=== PATIENT | female | born 2005 | race Caucasian/White ===

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

== ENCOUNTER 2024-02-24 17:31 | Emergency (ER) | payer OTHER, SELFPAY ==
[2024-02-24 17:59] VITALS: BP 112/72; PULSE 77; RESP 15; TEMP 36.9; O2SAT 100; BMI 23.3
[2024-02-24 18:58] LABS: Basophils # 0.1 10^3/uL (0.0-0.1); Basophils % 0.8 %; Eosinophils # 0.2 10^3/uL (0.0-0.8); Eosinophils % 1.9 %; Hematocrit 38.1 % (36-47); Lymphocytes # 2.1 10^3/uL (1.5-6.5); Lymphocytes % 25.5 %; Mean Corpuscular HGB Conc 34.4 g/dL (30-55); Mean Corpuscular Hemoglobin 28.5 pg (27-33); Mean Platelet Volume 11.9 fL (7.4-10.4); Monocytes # 0.6 10^3/uL (0.2-0.9); Monocytes % 7.5 %; Neutrophils # 5.32 10^3/uL (1.8-8.0); Neutrophils % 64.2 %; Nucleated Red Blood Cells % 0 %; Platelet Count 266 10^3/cmm (157-399); Red Blood Count 4.59 10^6/uL (3.85-5.65); Red Cell Distribution Width 12.2 % (12.1-15.1); White Blood Count 8.29 10^3/uL (4.5-13.0)
[2024-02-24 19:14] LABS: Alanine Aminotransferase 9 U/L (0-33); Albumin Level 4.6 g/dL (3.5-5.2); Alkaline Phosphatase 75 U/L (35-105); Aspartate Amino Transferase 16 U/L (0-32); Blood Urea Nitrogen 10 mg/dL (6-20); Calcium 9.2 mg/dL (8.5-10.5); Carbon Dioxide 24 mmol/L (22-29); Chloride 109 mmol/L (98-107); Creatinine Clr Calc Pharmacy 146.1254; Globulin 3.1 g/dL (1.3-4.6); Glomerular Filtration Rate 127.5 mL/min (90-130); Glucose 109 mg/dL (65-115); Lipase 20 U/L (13-60); Osmolality Calculated 296 mOsm/kg (285-295); Sodium 143 mmol/L (136-145); Total Bilirubin 0.6 mg/dL (0.15-1.2); Total Protein 7.7 g/dL (6.6-8.7)
[2024-02-24 19:17] LABS: HCG, Serum Qual Negative (Negative)
--- NOTE | 2024-02-24 19:19 | XRR_ITS ---
PROCEDURE INFORMATION: Exam: XR Abdomen Exam date and time: 02/24/2024 7:23 PM Age: 18 years old Clinical indication: Abdominal pain; Acute; Additional info: Upper abd pain TECHNIQUE: Imaging protocol: Radiologic exam of the abdomen. Views: Frontal supine view of the abdomen. 1 View. COMPARISON: No relevant prior studies available. FINDINGS: Gastrointestinal tract: Normal. No bowel dilation. Bones/joints: Unremarkable. XR/XR KUB portable [id number] IMPRESSION: No acute findings.
--- NOTE | 2024-02-24 19:41 | ED_ITS ---
HPI - Abdominal Pain 2 General: Chief Complaint: Abdominal Pain Stated Complaint: ABD pain, dizziness Time Seen by Provider: 02/24/24 17:46 Source: patient Mode of arrival: ambulatory Limitations: no limitations History of Present Illness: Patient is a 18-year-old female who presents to the emergency department complaining of upper abdominal pain chronically but worsening over the past month. She also notes intermittent changes in her bowel habits, stating she will fluctuate between constipation and diarrhea. Her last normal bowel movement was today. She denies any other symptoms at this time, specifically noting that she is not having any back pain, nausea or vomiting, changes in urination, or breathing difficulties. She has not taken anything for her symptoms and she does not report any specific alleviating or exacerbating factors at this time. Pain is reported to be mild and cramping. Denies possibility of . She does note a family history of irritable bowel syndrome. MD elicited complaint: abdominal pain Pertinent past history: none Onset (ago): month(s) Pain Consistency: intermittent Location: Epigastric, LUQ and RUQ Severity: mild Quality: cramping Radiation: none Migration to: no migration Exacerbating factors: nothing Relieving factors: nothing Associated Symptoms: Reports change in bowel habits, constipation and diarrhea; Denies bloating, chills, dysuria, fever(s), hematochezia, nausea and vomiting Review of Systems 2 General: Reports: 10 or more systems reviewed and unremarkable except in HPI and below Const: Denies: fever(s), chills, change in appetite, change in weight or diaphoresis ENMT: Denies: throat pain or hoarseness Card: Denies: chest pain, palpitations or lightheadedness Resp: Denies: dyspnea, productive cough or wheezing GI: Reports: abdominal pain, diarrhea, constipation and change in bowel habits; Denies: nausea, vomiting, bloating or hematochezia : Denies: flank pain, difficulty voiding, dysuria, urinary frequency or urinary urgency Musc: Denies: neck pain or back pain Skin/Breast: Denies: rash or new lesions Neuro: Denies: headache(s) or dizziness PFSH ED 2 PFSH: Medical History No pertinent past medical history Surgical History No pertinent past surgical history Family History Grandmother Diabetes Grandfather Diabetes Father Hypercholesteremia Denies family history of Colon cancer Ovarian cancer Heart disease Breast cancer Hypertension Uterine cancer Thyroid disease Stroke Physical Exam 2 Const: COMMON NORMALS: no acute distress, average body habitus, patient oriented x3, no limitations, healthy appearing, alert and well nourished G ENERAL APPEARANCE: cooperative and comfortable ORIENTATION/CONSCIOUSNESS: Yes awake HENMT: COMMON NORMALS: normocephalic, atraumatic, hearing grossly normal bilaterally, external ears normal, Normal external nose present, Normal nasal mucous membranes and turbinates present and moist oral mucous membranes HEAD & SCALP: normocephalic and atraumatic NOSE: Normal external nose present and Normal nasal mucous membranes and turbinates present EXTERNAL EAR: Yes external ears normal Eye: COMMON NORMALS: Equal, round and reactive pupils present, EOMs intact bilaterally, conjunctivae normal and normal visual diop by confrontation C ONJUNCTIVA: Yes conjunctivae normal PUPIL: Yes Equal, round and reactive pupils present Neck/C-Spine: COMMON NORMALS: full ROM, supple, no meningeal signs and no JVD Resp: COMMON NORMALS: normal respiratory effort, No retractions, No use of accessory muscles and clear to auscultation bilaterally AUSCULTATION: clear to auscultation bilaterally, no crackles, no rales, no rhonchi and no wheezes Cardio: COMMON NORMALS: no JVD, regular rate, regular rhythm, S1 normal heart sound present, S2 normal heart sound present, No gallops present (Cardio), No clicks present (Cardio), No murmurs present (Cardio), No rub (Cardio) and Peripheral pulses 2+ throughout RATE: regular rate RHYTHM: regular rhythm HEART SOUNDS: S1 normal heart sound present and S2 normal heart sound present PERIPHERAL PULSES: Peripheral pulses 2+ throughout GI: COMMON NORMALS: Normal to inspection, nondistended, normoactive bowel sounds present, Soft to palpation, non-tender, No hepatosplenomegaly present and no masses AUSCULTATION: Yes normoactive bowel sounds PALPATION: Yes Soft to palpation, No Guarding due to palpation present (GI), No Rigid due to palpation and Yes No hepatosplenomegaly present RECTAL EXAM: deferred O THER: Negative Thompson sign. Negative McBurney's point tenderness. Negative Rovsing sign. : COMMON NORMALS: Yes no CVA tenderness BLADDER/KIDNEY EXAM: Yes no CVA tenderness Back/Pelvis: COMMON NORMALS: no CVA tenderness Extremity: COMMON NORMALS: normal to inspection and full ROM Neuro: COMMON NORMALS: patient oriented x3, moves all extremities, no focal motor deficits and no sensory deficits noted SENSORIUM/ORIENTATION: Yes alert MENINGEAL SIGNS: Yes no meningeal signs Psych: COMMON NORMALS: mental status grossly normal, cooperative and speech normal SPEECH: Yes normal speech Skin: COMMON NORMALS: no rashes or lesions noted GENERAL SKIN EXAM: no rashes or lesions noted Course 2 Vital Signs: Vital signs: Vital Signs Temperature 98.4 F 02/24/24 17:59 Pulse Rate 87 02/24/24 20:44 Respiratory Rate 16 02/24/24 20:44 Blood Pressure 113/66 02/24/24 20:44 Pulse Oximetry 99 02/24/24 20:44 Oxygen Delivery Me thod Room Air 02/24/24 20:44 MDM - Abdominal Pain Medical Decision Making Patient seen for acute on chronic upper abdominal pain, has been worsening over the past month. Has not taken anything for her symptoms. Her vitals were unremarkable. Her physical examination was also unremarkable and she did not demonstrate any specific abdominal signs such as Thompson sign or McBurney's point tenderness. Her lab work was all unremarkable. No signs of infection. test negative. KUB did not demonstrate any acute findings as well. Patient does note family history of aorta bowel syndrome, and due to her reported altering diarrhea and constipation over the past year or so, I I think that this is likely patient's explanation for pain as well. I will refer her to GI, and strict return precautions are given at this time. Lab Data 02/24/24 18:40 02/24/24 18:40 Labs/Radiology: Radiology Impressions KUB X-Ray 02/24/24 19:19 IMPRESSION: No acute findings. Laboratory Results WBC 8.29 10^3/uL (4.5-13.0) 02/24/24 18:40 RBC 4.59 10^6/uL (3.85-5.65) 02/24/24 18:40 Hgb 13.10 g/dL (12.4-14.8) 02/24/24 18:40 Hct 38.1 % (36-47) 02/24/24 18:40 MCV 83.0 fl (85-98) L 02/24/24 18:40 MCH 28.5 pg (27-33) 02/24/24 18:40 MCHC 34.4 g/dL (30-55) 02/24/24 18:40 RDW 12.2 % (12.1-15.1) 02/24/24 18:40 Plt Count 266 10^3/cmm (157-399) 02/24/24 18:40 MPV 11.9 fL (7.4-10.4) H 02/24/24 18:40 Neut % (Auto) 64.2 % 02/24/24 18:40 Lymph % (Auto) 25.5 % 02/24/24 18:40 Daggett % (Auto) 7.5 % 02/24/24 18:40 Eos % (Auto) 1.9 % 02/24/24 18:40 Baso % (Auto) 0.8 % 02/24/24 18:40 Neut # (Auto) 5.32 10^3/uL (1.8-8.0) 02/24/24 18:40 Lymph # (Auto) 2.1 10^3/uL (1.5-6.5) 02/24/24 18:40 Daggett # (Auto) 0.6 10^3/uL (0.2-0.9) 02/24/24 18:40 Eos # (Auto) 0.2 10^3/uL (0.0-0.8) 02/24/24 18:40 Baso # (Auto) 0.1 10^3/uL (0.0-0.1) 02/24/24 18:40 Nucleated RBC % (auto) 0 % 02/24/24 18:40 Nucleated RBCs # 0.0 /100WBC 02/24/24 18:40 Sodium 143 mmol/L (136-145) 02/24/24 18:40 Potassium 4.0 mmol/L (3.5-5.1) 02/24/24 18:40 Chloride 109 mmol/L (98-107) H 02/24/24 18:40 Carbon Dioxide 24 mmol/L (22-29) 02/24/24 18:40 Anion Gap 14.0 (5-19) 02/24/24 18:40 BUN 10 mg/dL (6-20) 02/24/24 18:40 Creatinine 0.6 mg/dL (0.5-0.9) 02/24/24 18:40 GFR Calculation 127.5 mL/min (90-130) 02/24/24 18:40 Glucose 109 mg/dL (65-115) 02/24/24 18:40 Calculated Osmolality 296 mOsm/kg (285-295) H 02/24/24 18:40 Calcium 9.2 mg/dL (8.5-10.5) 02/24/24 18:40 Total Bilirubin 0.6 mg/dL (0.15-1.2) 02/24/24 18:40 AST 16 U/L (0-32) 02/24/24 18:40 ALT 9 U/L (0-33) 02/24/24 18:40 Alkaline Phosphatase 75 U/L (35-105) 02/24/24 18:40 Total Protein 7.7 g/dL (6.6-8.7) 02/24/24 18:40 Albumin 4.6 g/dL (3.5-5.2) 02/24/24 18:40 Globulin 3.1 g/dL (1.3-4.6) 02/24/24 18:40 Lipase 20 U/L (13-60) 02/24/24 18:40 HCG, Qual Negative (Negative) 02/24/24 18:40 Urine Color Yellow (Yellow) 02/24/24 19:44 Urine Appearance Clear (CLEAR) 02/24/24 19:44 Urine pH 7 (5-7) 02/24/24 19:44 Ur Specific [place] 1.015 (1.005-1.030) 02/24/24 19:44 Urine Protein Neg (Negative) 02/24/24 19:44 Urine Glucose (UA) Norm (Normal) 02/24/24 19:44 Urine Ketones Negative (Negative) 02/24/24 19:44 Urine Blood 2+ (Negative) H 02/24/24 19:44 Urine Nitrate Negative (Negative) 02/24/24 19:44 Urine Bilirubin Neg (Negative) 02/24/24 19:44 Urine Urobilinogen 1 mg/dL (Negative) H 02/24/24 19:44 Ur Leukocyte Esterase Trace (Negative) H 02/24/24 19:44 Urine RBC 0-4 /hpf (0-2) H 02/24/24 19:44 Urine WBC 0-4 /hpf (0-5) H 02/24/24 19:44 Ur Squamous Epith Cells 10-15 /hpf (0-5) H 02/24/24 19:44 Amorphous Sediment 1+ /hpf 02/24/24 19:44 Urine Bacteria Trace /hpf (NONE) 02/24/24 19:44 Urine Mucus 1+ /hpf 02/24/24 19:44 All radiology interpretation(s) finalized by discharge Discharge Plan Discharge Patient Disposition: Home Clinical Impression: Chronic upper abdominal pain Condition: Stable Prescriptions: No Action No Known Home Medications Discharge Orders: Discharge ED (Routine); Ordered 02/24/24 Ordered By: Benjamin Rodriguez Discharge Diet: As Directed Discharge Activity: Increase activity as tolerated Patient Instructions: Abdominal Pain (ED), Pain Management Activity Restrictions/Additional Instructions: Increase your dietary fiber. Increase your fluid intake. Follow-up with GI as discussed. Return with any new or worsening symptoms. Coding Level of Care Code ED Assistant Press Operator for Alycia Salmon
[2024-02-24 20:04] VITALS: BP 113/66; PULSE 80; RESP 18; O2SAT 100
[2024-02-24 20:20] LABS: Add Urine Microscopic? YES; Bilirubin Urine Neg (Negative); Blood Urine 2+ (Negative); Glucose Urine UA Norm (Normal); Ketones Urine Negative (Negative); Leukocyte Esterase Urine Trace (Negative); Nitrate Urine Negative (Negative); Protein Urine Neg (Negative); Specific Gravity, Urine 1.015 (1.005-1.030); Urine Appearance Clear (CLEAR); Urine Color Yellow (Yellow); Urobilinogen Urine 1 mg/dL (Negative); pH Urine 7 (5-7)
[2024-02-24 20:21] LABS: Add Urine Culture? No; Amorphous Sediment Urine 1+ /hpf; Bacteria Urine TRACE /hpf; Mucus Urine 1+ /hpf; RBC Urine 0-4 /hpf (0-2); WBC Urine 0-4 /hpf (0-5)
[2024-02-24 20:44] VITALS: BP 113/66; PULSE 87; RESP 16; O2SAT 99
[2024-02-24 21:31] VITALS: BP 109/72; PULSE 79; RESP 15; O2SAT 99
--- NOTE | 2024-02-27 22:56 | DCPLANNER ---
Sent GI referral to Cheryl LARRY-
== END 2024-02-24 21:35 | disposition home or self-care (01) ==
PROVIDERS: Emergency Medicine; Emergency Provider Physician Assistant
DX: G89.29 Other chronic pain (principal); R10.10 Upper abdominal pain, unspecified
CPT/HCPCS: 36415; 74018; 80053; 81001; 83690; 84703; 85025; 99284